=== PATIENT | male | born 1945 | race Caucasian/White ===

== ENCOUNTER 2020-01-23 19:24 | Outpatient (REF) | payer OTHER, SELFPAY ==
[2020-01-23 19:30] LABS: HCT 49.5 % (40.0-50.0); HGB 16.8 g/dL (13.5-17.5); MCH 31.3 pg (27.0-33.0); MCHC 33.9 % (32.0-36.0); MCV 92.4 fL (80-95); MPV 11.7 fL (8.0-11.0); Platelet Count 225 10^3/uL (130-400); RBC 5.36 10^6/uL (4.36-5.78); RDW 12.8 % (11.8-14.1); RDW-SD 43.8 fL; WBC 10.25 10^3/uL (4.4-10.8)
[2020-01-23 19:49] LABS: ALT 15 U/L (16-63); AST 19 U/L (15-37); Albumin 3.8 g/dL (3.4-5.0); Alkaline Phosphatase 91 U/L (46-116); Anion Gap 5.3 mmol/L (3-11); BUN 22 mg/dL (7-18); Bilirubin, Total 1.1 mg/dL (0.2-1.0); CO2 28.7 mmol/L (21.0-32.0); CREATININE 1.11 mg/dL (0.70-1.30); Calcium 9.4 mg/dL (8.5-10.1); Chloride 104 mmol/L (98-107); Glucose 96 mg/dL (74-106); Potassium 4.4 mmol/L (3.5-5.1); Sodium 138 mmol/L (136-145); TSH 3.82 uIU/mL (0.36-3.74)
[2020-01-28 15:24] LABS: Testosterone, Free 8.01 ng/dL (3.08-11.3); Testosterone, Total 801 ng/dL (240-950)
== END 2020-01-23 19:44 ==
LOC: NCHCN 19:24
PROVIDERS: PCP Internal Medicine; Visit Provider Internal Medicine
DX: Z00.00 Encounter for general adult medical examination without abnormal findings (principal); R63.4 Abnormal weight loss; K21.9 Gastro-esophageal reflux disease without esophagitis; F52.21 Male erectile disorder
CPT/HCPCS: 80053; 84402; 84403; 85027; 84443

== ENCOUNTER 2020-03-02 18:00 | Outpatient (REF) | payer OTHER, SELFPAY ==
[2020-03-06 10:07] LABS: COVID-19 RT-PCR Result NEGATIVE (Negative)
== END 2020-03-02 18:20 ==
LOC: NCHCN 18:00
PROVIDERS: PCP Internal Medicine; Visit Provider Internal Medicine
DX: Z20.828 Contact with and (suspected) exposure to other viral communicable diseases (principal)
CPT/HCPCS: U0003

== ENCOUNTER 2021-01-07 17:00 | Outpatient (REF) | payer OTHER, SELFPAY ==
--- OUTSIDE RECORDS SUMMARY | 2021-01-07 17:05 | XMS_ITS ---
:1945 Author Care Team Providers Name Role Phone MICHELLE DAVIS MD General Surgeon Unavailable AGUSTÍN ACUÑA MD Student Financial Services Counselor [phone] MARCELLUS MAURO MD Primary Care Provider [phone] Allergies Code Code System Name Reaction Severity Status Onset NKDA ? Notes: No seafood, sheefish or I V contrast allergy Medications Name Status Start Date Stop Date ? ? aspirin 81 mg tablet,delayed release Active ? Not available Take 1 tablet every day by oral route. famotidine 20 mg tablet Active ? Not avai lable Take 1 tablet every day by oral route. metoprolol tartrate 25 mg tablet Completed 03/31/2012 07/17/2014 (one half) Tablet: daily mirtazapine 15 mg tablet Active ? Not camryn ilable Take 1 tablet every day by oral route at bedtime. SB Low Dose ASA EC 81 mg tablet,delayed release Completed ? 02/22/2020 Take 1 tablet every day by oral route. Tylenol Extra Strength 500 mg/15 mL oral liquid Completed 10/22/2012 07/17/2014 2 (two) Capsule(s)/Caplet(s): every six hours Notes: is unsure of milligrams Problems Name Status Onset Date Source ? Impotence Active ? History Amaurosis Fugax Active ? History Aortic Valve Stenosis Active ? ? Gastroesophageal Reflux Disease Active ? History Disorder of Penis Active ? History Idiopathic Osteoarthritis Active ? Histor y Abnormal Weight Loss Active ? History Disorder of Skin And/or Subcutaneous Tissue Active ? History Procedure by Method Active ? History Long-term Current Use of Drug Therapy Active ? History History of Cardiac Surgery Active ? Histo ry Procedures None recorded. Results Lab Results Date Name Specimen Result Interpretation Description Value Range Status Address ? 01/02/2017 Pathology TISS ? Report results ? Final N orth [facility] Study below [facility] (Internal) : [address] Past Encounters 02/22/2020 Agustín Acuña MD: [address] [place] [address], Ph. Social History Tobacco Smoking Status Former Smoker (1 pack per a Notes: smoked x 5-6 years day) 1 ppd quit at age 24 Vaccine List None recorded. Plan of Care Reminders Provider Appointments None ? ? recorded. Lab None ? ? recorded. Referral None ? ? recorded. Procedures None ? ? recorded. Surgeries None ? ? recorded. Imaging None ? ? recorded. Vitals 02/22/2020 03:30PM Consult 44 Weight Blood Pressure 60.95 kg 127/80 mm[Hg] 12/08/2016 Height Weight Blood Pressure 177.8 cm 63.05 kg 120/78 mm[Hg] 09/06/2014 Blood Pressure 126/80 mm[Hg]
[2021-01-07 20:19] LABS: HCT 48.9 % (40.0-50.0); HGB 16.6 g/dL (13.5-17.5); MCH 31.1 pg (27.0-33.0); MCHC 33.9 % (32.0-36.0); MCV 91.7 fL (80-95); MPV 12.2 fL (8.0-11.0); Platelet Count 230 10^3/uL (130-400); RBC 5.33 10^6/uL (4.36-5.78); RDW 12.8 % (11.8-14.1); RDW-SD 43.3 fL; WBC 7.84 10^3/uL (4.4-10.8)
[2021-01-07 20:39] LABS: ALT 25 U/L (16-63); AST 23 U/L (15-37); Albumin 3.9 g/dL (3.4-5.0); Alkaline Phosphatase 90 U/L (46-116); Anion Gap 11.3 mmol/L (3-11); BUN 20 mg/dL (7-18); Bilirubin, Total 1.4 mg/dL (0.2-1.0); CO2 24.7 mmol/L (21.0-32.0); CREATININE 1.1 mg/dL (0.70-1.30); Calcium 9.5 mg/dL (8.5-10.1); Chloride 104 mmol/L (98-107); Glucose 98 mg/dL (74-106); Potassium 4.5 mmol/L (3.5-5.1); Sodium 140 mmol/L (136-145); TSH 1.55 uIU/mL (0.36-3.74)
[2021-01-09 10:48] LABS: HIV-1/2 Ag & Ab Screen Negative (Negative)
== END 2021-01-07 17:01 | disposition home or self-care (01) ==
LOC: NCHCN 17:00
PROVIDERS: PCP Internal Medicine; Visit Provider Internal Medicine
DX: R63.4 Abnormal weight loss (principal)
CPT/HCPCS: 80053; 85027; 87389; 84443

== ENCOUNTER 2021-03-27 19:00 | Outpatient (REF) | payer OTHER, SELFPAY ==
[2021-03-27 20:48] LABS: Bilirubin, Total 0.7 mg/dL (0.2-1.0)
== END 2021-03-27 19:01 | disposition home or self-care (01) ==
LOC: NCHCN 19:00
PROVIDERS: PCP Internal Medicine; Visit Provider Internal Medicine
DX: R17 Unspecified jaundice (principal)
CPT/HCPCS: 82247

== ENCOUNTER 2021-08-05 21:32 | Outpatient (REF) | payer MEDICARE, SELFPAY ==
[2021-08-07 09:18] LABS: Alpha 1 Antitrypsin,Serum 145 mg/dL (90-200)
== END 2021-08-05 21:33 | disposition home or self-care (01) ==
LOC: NCHCN 21:32
PROVIDERS: PCP Internal Medicine; Visit Provider Internal Medicine
DX: J43.9 Emphysema, unspecified (principal)
CPT/HCPCS: 82103

== ENCOUNTER 2023-11-02 18:30 | Outpatient (REF) | payer MEDICARE, SELFPAY ==
[2023-11-02 19:24] LABS: HCT 49.5 % (40.0-50.0); HGB 16.7 g/dL (13.5-17.5); MCH 31.9 pg (27.0-33.0); MCHC 33.7 % (32.0-36.0); MCV 95 fL (80-95); MPV 12.1 fL (8.0-11.0); Platelet Count 206 10^3/uL (130-400); RBC 5.24 10^6/uL (4.36-5.78); RDW 13.1 % (11.8-14.1); RDW-SD 45.7 fL; WBC 7.73 10^3/uL (4.4-10.8)
[2023-11-02 20:19] LABS: Anion Gap 9.1 mmol/L (3-11); BUN 18 mg/dL (7-18); CO2 27.9 mmol/L (21.0-32.0); CREATININE 1.2 mg/dL (0.70-1.30); Chloride 104 mmol/L (98-107); Estimated GFR 61.52 (mL/min/1.73m2); Glucose 107 mg/dL (74-106); Potassium 4.7 mmol/L (3.5-5.1); Sodium 141 mmol/L (136-145)
[2023-11-03 18:11] LABS: PSA, Diagnostic 3.6 ng/mL (<=6.5)
== END 2023-11-02 18:31 | disposition home or self-care (01) ==
LOC: NCHCN 18:30
PROVIDERS: PCP Internal Medicine; Visit Provider Internal Medicine
DX: R31.0 Gross hematuria (principal); R79.89 Other specified abnormal findings of blood chemistry
CPT/HCPCS: 80048; 85027; 84153

== ENCOUNTER → 2024-03-08 12:29 | Outpatient (BNVA) | payer MEDICARE, SELFPAY | PROVIDERS: PCP Internal Medicine; Referring Provider Internal Medicine; Visit Provider Nurse Practitioner Gerontology | DX: R31.0 Gross hematuria (principal); N40.0 Benign prostatic hyperplasia without lower urinary tract symptoms | CPT/HCPCS: 99203 ==

== ENCOUNTER → 2024-04-19 08:25 | Outpatient (BNVA) | payer MEDICARE, SELFPAY | PROVIDERS: PCP Internal Medicine; Referring Provider Internal Medicine; Visit Provider Urology | DX: R31.0 Gross hematuria (principal) | CPT/HCPCS: 52000 ==